=== PATIENT | female | born 1990 | race Caucasian/White ===

== ENCOUNTER 2025-02-08 14:09 | Emergency (ER) | payer MEDICAID, SELFPAY ==
[2025-02-08 14:09] VITALS: BP 140/86; PULSE 115; RESP 18; TEMP 36.3; O2SAT 98
--- NOTE | 2025-02-08 14:37 | ED_ITS ---
HPI - General Adult General Chief complaint: Unspecified Stated complaint: concerns of high blood pressure Time Seen by Provider: 02/08/25 14:22 Source: patient Mode of arrival: ambulatory Limitations: no limitations History of Present Illness HPI narrative: this is patient 35-year-old female with history of chronic alcoholism presents after she has not been drinking for [id number] and is asking for help to to get her to quit alcohol use. Otherwise there was no symptoms today no evidence of withdrawal symptoms no tremors no fever chills no muscle aches or pains no chest pain or shortness Related Data Allergies Allergy/AdvReac Type Severity Reaction Status Date / Time No Known Allergies Allergy Unknown Verified 02/08/25 14:31 Review of Systems Review of Systems: All systems reviewed & are unremarkable except as noted in HPI and below PMFSH Past Medical History Medical History Chronic alcoholism Depression Exam Const: General: cooperative, comfortable, no acute distress, well developed, alert, awake and Physically active HENMT: Head: normal to inspection Eyes: General: appearance normal, both eyes and all related structures Chest: Chest palpation & inspection: normal inspection of the chest and normal palpation of entire chest wall Cardio: Jugular venous distension: no JVD Palpation: normal PMI Rate: regular rate Rhythm: regular rhythm Heart sounds: S1 normal heart sound present and S2 normal heart sound present GI: Inspection: normal to inspection : General: Yes bimanual renal exam normal bilaterally Skin: General skin exam: normal color and no rashes or lesions noted Neuro: General: oriented to person, oriented to place, oriented to time and patient oriented x3 Extrem: General: normal to inspection, full ROM, capillary refill normal and normal exam except as noted Psych: Affect: Anxious affect present Course Course Emergency Course: patient evaluated blood pressure stable at 1 40/86 and wants to stop drinking and will send medication to her local pharmacy. Vital Signs Vital signs: Vital Signs Pulse Rate 115 H 02/08/25 14:09 Respiratory Rate 18 02/08/25 14:09 Blood Pressure 140/86 02/08/25 14:09 Pulse Oximetry 98 02/08/25 14:09 Oxygen Delivery Room Air 02/08/25 14:09 Pulse Rate 115 H 02/08/25 14:09 Respiratory Rate 18 02/08/25 14:09 Blood Pressure 140/86 02/08/25 14:09 Pulse Oximetry 98 02/08/25 14:09 Oxygen Delivery Room Air 02/08/25 14:09 Medical Decision Making Vital Signs Vital Signs: Vital Signs Pulse Rate 115 H 02/08/25 14:09 Respiratory Rate 18 02/08/25 14:09 Blood Pressure 140/86 02/08/25 14:09 Pulse Oximetry 98 02/08/25 14:09 Oxygen Delivery Room Air 02/08/25 14:09 Pulse Rate 115 H 02/08/25 14:09 Respiratory Rate 18 02/08/25 14:09 Blood Pressure 140/86 02/08/25 14:09 Pulse Oximetry 98 02/08/25 14:09 Oxygen Delivery Room Air 02/08/25 14:09 Critical Care Time Critical Care Time Critical Care Time: No Discharge Plan Discharge Clinical Impression: Chronic alcoholism Depression Qualifiers: Depression Type: unspecified Qualified Code(s): F32.A - Depression, unspecified Patient Disposition: Home Condition: Stable Instructions: Antibiotic Form, Depression (ED), Alcohol Dependence (ED) Additional Instructions: advised to take medication as prescribed and to follow with primary within the next 3 to 5 days for further evaluation and treatment. Patient Language: Swedish Prescriptions: New chlordiazepoxide HCl 25 mg capsule 25 mg PO ONCE PRN (Reason: alcohol withdrawal) Qty: 30 0RF Rx Instructions: [id number] every 6hours day 1 25mg q.6 hours date 2 25mg at HS day 4 chlordiazepoxide HCl 25 mg capsule 25 mg PO ONCE Qty: 30 0RF Rx Instructions: take daily after tapering dose escitalopram oxalate [Lexapro] 10 mg tablet 10 mg PO DAILY Qty: 30 0RF Follow-up/Referrals: Quang Olson MD [Primary Care Provider] - Time of Disposition: 14:46
--- NOTE | 2025-02-08 14:46 | PC.NURSE ---
offered pt information flyers for rehab , pt declined, rehab doesnt work.
--- OUTSIDE RECORDS SUMMARY | 2025-02-08 14:56 | XMS_ITS | Clinical Summary ---
Author Organization [facility] Address [address] [place] [id number] Care Team Providers Care Strategic Sourcing Manager Name Role Phone Unavailable Primary Care Provider Unavailabl e Social History Tobacco Use Types Packs/Day Years Used Date Smoking Tobacco: Smoker, Current Status Unknown Comments Unknown Sex and Gender Information Value Date Recorded Sex Assigned at Not on file Legal Sex Female 6:01 PM CDT Gender Identity Not on file Sexual Orientation Not on file Last Filed Vital Signs Vital Sign Reading Time Taken Comments Blood Pressure 122/84 10/31/2010 11:11 AM CDT Pulse 76 10/31/2010 11:11 AM CDT Regu lar Temperature - - Respiratory Rate 16 10/31/2010 11:11 AM CDT Oxygen Saturation - - Inhaled Oxygen Concentration - - Weight 72.6 kg (160 lb) 10/31/2010 11:11 AM CDT Height 168.9 cm (5' 6.5) 10/31/2010 11:11 AM CD T Body Mass Index 25.44 10/31/2010 11:11 AM CDT Plan of Treatment Health Maintenance Due Date Last Done Comments Cervical Cancer Screening Pa p Smear (Age 30 to 64) Every 3 Years 1988 Annual Physical 01/30/1991 Hepatitis C 01/30/2006 DTaP, Tdap and Td Vaccines ( 1 - Tdap) 01/30/2007 Hepatitis B Vaccines (1 of 3 - 19+ 3-dose series) 01/30/2007 Cervical Cancer Screening Pa p with HPV Testing (Age 30 to 64) Every 5 Years 01/30/2018 Cervical Cancer Screening with HPV 01/30/2018 COVID-19 Vaccine (2023-2 5 season) 2024 HPV Vaccines Aged Out No longer eligi ble based on patient's age to complete this topic Meningococcal B Vaccine Aged Out No l onger eligible based on patient's age to complete this topic Meningococcal Vaccine Aged Out No jenifer juan david eligible based on patient's age to complete this topic Pneumococcal Vaccine: Pediat rics (0 to 5 Years) and At-Risk Patients (6 to 49 Years) Aged Out No longer eligible b ased on patient's age to complete this topic RSV Immunizations Under 20 Months Aged Out No longer eligible based on patient's age to complete this topic
== END 2025-02-08 14:51 | disposition home or self-care (01) ==
PROVIDERS: Emergency Provider Emergency Medicine; Referring Provider Family Medicine
DX: F10.20 Alcohol dependence, uncomplicated (principal); T51.0X1A Toxic effect of ethanol, accidental (unintentional), initial encounter; Y90.9 Presence of alcohol in blood, level not specified; F32.A Depression, unspecified
CPT/HCPCS: 99283

== ENCOUNTER 2025-05-13 09:32 | Emergency (ER) | payer OTHER, SELFPAY ==
--- NOTE | ~2025-05-13 | XR_ITS ---
Examination: XR knee LT 3V Clinical History: Intermittent Lt. knee pain/swelling, NKI Comparison: None Technique: 3 views left knee Findings/impression: 1. No acute fracture, dislocation, or effusion left knee. 2. No degenerative changes. Reviewed, dictated and finalized at location R.
[2025-05-13 09:32] VITALS: BP 144/102; PULSE 106; RESP 20; TEMP 37; O2SAT 98
--- NOTE | 2025-05-13 09:50 | ED.EXTPRO ---
HPI - Extremity Problem General Chief complaint: Extremity Problem,Nontraumatic Stated complaint: left knee pain Time Seen by Provider: 05/13/25 09:50 Source: patient Mode of arrival: ambulatory Limitations: no limitations History of Present Illness HPI Narrative: Patient is a 35-year-old female with a left knee pain and swelling for the past 3-4 weeks. Pain is increasingly gotten worse over the past 24 hours. She works night shifts. She presents after her shift. No calf pain. She does have some numbing sensation down the anterior grajeda. No particular injury. MD Complaint: extremity swelling, joint swelling and joint paint Onset (ago): week(s) (3-4) Pain Consistency: constant Location: left and knee Severity scale (1-10): 6 Quality: stabbing and sharp Radiation: distal Relieving factors: immobilization Exacerbating factors: weight bearing, walking, exertion and palpation Associated symptoms: denies other symptoms Context: other (Patient has left knee pain that is getting worse over time with some swelling after her shift last night) Related Data Allergies Allergy/AdvReac Type Severity Reaction Status Date / Time No Known Allergies Allergy Unknown Verified 02/08/25 14:31 Review of Systems Review of Systems: All systems reviewed & are unremarkable except as noted in HPI and below Constitutional: Constitutional: Reports no additional constitutional complaints Eyes: Eyes: Reports no additional eye complaints ENT: Reports system reviewed and no additional complaints, except as documented Cardiovascular: Cardiovascular: Reports no additional cardiovascular complaints Respiratory: Respiratory: Reports no additional respiratory complaints Gastrointestinal: Gastrointestinal: Reports no additional gastrointestinal complaints Genitourinary: Genitourinary: Reports no additional female genitourinary complaints Musculoskeletal: Musculoskeletal: Reports no additional musculoskeletal complaints Integumentary/Breasts: Skin/Breast: Reports system reviewed and no additional complaints, except as docu Neurologic: Reports system reviewed and no additional complaints, except as documented Psychiatric: Psychiatric: Reports no additional psychiatric complaints Endocrine: Endocrine: Reports no additional endocrine complaints Hematologic/Lymphatic: Hematologic/Lymphatic: Reports no additional hematologic/lymphatic complaints Allergic/Immunologic: Allergic/Immunologic: Reports no additional allergic/immunologic complaints PMFSH Past Medical History Medical History Chronic alcoholism Depression Exam Const: General: healthy appearing Nutritional Appearance: well nourished Orientation/consciousness: patient oriented x3 HENMT: Head: normal to inspection Ears: external ears normal Face/Nose/Sinus: Normal external nose present Eyes: Conjunctivae: conjunctivae normal Pupils: Equal, round and reactive pupils present EOM: EOMs intact bilaterally Neck: Neck: normal visual inspection Chest: Chest palpation & inspection: normal inspection of the chest Resp: Effort & Inspection: normal respiratory effort and not labored Auscultation: clear to auscultation bilaterally and no crackles Cardio: Rate: regular rate Rhythm: regular rhythm Heart sounds: no murmurs GI: Inspection: non-distended GI Palp: Yes Soft to palpation and No Tenderness to palpation present (GI) Auscultation: normal bowel sounds : General: Yes bladder normal to palpation Back/Spine/Pelvis: Back: no CVA tenderness Skin: General skin exam: normal color Rashes: no rashes Wounds: no wounds Neuro: General: patient oriented x3, moves all extremities and no meningeal signs Extrem: General: abnormal to inspection, no clubbing, cyanosis or edema and no pedal edema Other: Patient has left knee pain and swelling to palpation and specifically posterior knee has an area of hardened cystic like sensation to palpation and specifically the pain syndrome reproduced; no calf pain and negative for Homans sign; wells criteria is -2 Psych: Mental Status: mental status grossly normal Affect: normal affect Attitude: cooperative Course Vital Signs Vital signs: Vital Signs Temperature 37.0 C 05/13/25 09:32 Pulse Rate 106 H 05/13/25 09:32 Respiratory Rate 20 05/13/25 09:32 Blood Pressure 144/102 H 05/13/25 09:32 Pulse Oximetry 98 05/13/25 09:32 Oxygen Delivery Room Air 05/13/25 09:32 Temperature 37.0 C 05/13/25 09:32 Pulse Rate 106 H 05/13/25 09:32 Respiratory Rate 20 05/13/25 09:32 Blood Pressure 144/102 H 05/13/25 09:32 Pulse Oximetry 98 05/13/25 09:32 Oxygen Delivery Room Air 05/13/25 09:32 MDM - Extremity (Nontraumatic) MDM Narrative Medical decision making narrative: Patient is a 35-year-old female with a left knee pain over the past 3-4 weeks and getting worse over the past 24 hours. We will get an x-ray. Pain control. Imaging Data Attestation: I personally reviewed and interpreted this imaging study as follows: Radiologist's impression: Left knee x-ray was negative for acute process Discharge Plan Discharge Clinical Impression: Bursitis of left knee Qualifiers: Knee bursitis location: unspecified Qualified Code(s): M70.52 - Other bursitis of knee, left knee Cyst, Mcdowell's knee Qualifiers: Laterality: left Qualified Code(s): M71.22 - Synovial cyst of popliteal space [Mcdowell], left knee Patient Disposition: Home Condition: Stable Instructions: Knee Bursitis (ED), Mcdowell Cyst (ED) Additional Instructions: Please use rest, ice, elevation and Johny bandage. Further workup can be done with the primary doctor to include an MRI. I suggested ultrasound 1st to look for a Mcdowell cyst in the back of the knee. Orthopedic surgery can be seen. Patient Language: French Prescriptions: New methylprednisolone [Medrol (Ernesto)] 4 mg tablets,dose pack See Rx Instructions .ROUTE .COMPLEX Qty: 21 0RF Rx Instructions: orally per package directions hydrocodone-acetaminophen 5-325 mg tablet 1 tablet PO Q8H PRN (Reason: pain) Qty: 20 0RF No Action chlordiazepoxide HCl 25 mg capsule 25 mg PO ONCE PRN (Reason: alcohol withdrawal) Qty: 30 0RF Rx Instructions: [id number] every 6hours day 1 25mg q.6 hours date 2 25mg at HS day 4 chlordiazepoxide HCl 25 mg capsule 25 mg PO ONCE Qty: 30 0RF Rx Instructions: take daily after tapering dose escitalopram oxalate [Lexapro] 10 mg tablet 10 mg PO DAILY Qty: 30 0RF chlordiazepoxide HCl 25 mg capsule 25 mg PO BID PRN (Reason: anxiety) Qty: 60 0RF Rx Instructions: [id number] q.6 hours day 1 25mg q.6 hours date 2 25mg b.i.d. day 3 25mg at HS thereafter Follow-up/Referrals: Dinh García MD [Primary Care Provider, Internal Medicine] Time of Disposition: 10:26
[2025-05-13] MEDS: ACETAMINOPHEN 500 MG TABLET 1000 MG PO (10:18)
== END 2025-05-13 10:28 | disposition home or self-care (01) ==
PROVIDERS: Emergency Provider Emergency Medicine; PCP Internal Medicine
DX: M71.22 Synovial cyst of popliteal space [Baker], left knee (principal)
CPT/HCPCS: 73562; 99283; A9270

== ENCOUNTER 2025-07-29 10:17 | Emergency (ER) | payer OTHER, SELFPAY ==
[2025-07-29 10:19] VITALS: BP 166/109; PULSE 106; RESP 16; TEMP 36; O2SAT 97
--- OUTSIDE RECORDS SUMMARY | 2025-07-29 10:19 | XMS_ITS | Clinical Summary ---
Author Organization [facility] Address [address] [place] [id number] Care Team Providers Care Dry Wall Installer Name Role Phone Unavailable Primary Care Provider [...] of 3 - 19+ 3-dose series) 01/30/2007 HPV Vaccines (1 - 3-dose SCD M series) 01/30/2015 Cervical Cancer Screening Pa p with HPV Testing (Age 30 to 64) Every 5 Years 01/30/2018 Cervical Cancer Screening with HPV 01/30/2018 COVID-19 Vaccine ( - 2024-2 6 season) 2025 Influenza Adult (#1) 2025 Hepatitis A Vaccines Aged Out No long er eligible based on patient's age to complete [...]
--- NOTE | 2025-07-29 10:21 | PC.NURSE ---
After triage, patient pulled up her phone camera to look at her neck and face, noticed redness has resolved and chose to leave before being seen by provider. Patient states she will return if rash appears again.
== END 2025-07-29 10:23 | disposition left against medical advice (07) ==
PROVIDERS: Emergency Provider Emergency Medicine; PCP Internal Medicine
DX: R21 Rash and other nonspecific skin eruption (principal)
CPT/HCPCS: 99199